=== PATIENT | male | born 1955 | race Caucasian/White ===

== ENCOUNTER → 2017-10-19 16:12 | Outpatient (CLI) | payer BC, SELFPAY ==
--- NOTE | 2017-10-19 | TISS_PTH ---
PATIENT: ALO JOHNSON LOC: [facility] U#:[id number] AGE/SX: 70/M ROOM: RE10/19/[address]: Dr. Fran Noguera DDS : 1955 BED: DIS: SPEC #: [id number] RECD: 10/19/17 17:26 STATUS: MARGARITO GEMA #: [id number] PETER: 10/19/17 00:[address]: Fran Noguera DEPT: SURGICAL PATHOLOGY RECD BY: Chandu Louis ENTERED: 10/20/17 11:24 SP TYPE: Tissue Bx CHAZ DR: Dr. Katelin Young DO Tissues: Skin of lip, NOS Procedures: Special Stain Group I Surgery Specimen Level IV AFB Stain (control) GMS Stain (control) HEADER OPERATION: Lip PRE-OP DIAGNOSIS: Two month history for lesion TISSUE SUBMITTED: Lip biopsy, consider pyogenic granuloma MICROSCOPIC DIAGNOSIS Lip, biopsy: Ulceration with associated acute and chronic inflammation and granulation. No evidence of malignancy. Negative for acid-fast bacilli and fungal organisms. AM:omar 10/21/17 COMMENT AFB and GMS stains with matched controls were used in the evaluation of this case. MICROSCOPIC DESCRIPTION Slides are reviewed. GROSS DESCRIPTION Received in fixative is one container labeled with the patient's name and designated upper lip. The specimen consists of a fragment of [place] mucosal tissue measuring 0.5 x 0.4 x 0.3 cm. The specimen is inked and submitted entirely in one cassette. / SJ:omar 10/20/16 TC:2 CPT: 88124, 99835 x2
== END ==
PROVIDERS: Family Provider Internal Medicine; PCP Internal Medicine; Visit Provider Dentist Oral and Maxillofacial Surgery
DX: L98.8 Other specified disorders of the skin and subcutaneous tissue (principal)
CPT/HCPCS: 88305; 88312

== ENCOUNTER → 2017-12-15 09:37 | Outpatient (CLI) | payer BC, SELFPAY ==
[2017-12-15 10:35] LABS: PSA,Total - Annual Screen 0.89 ng/mL (0.00-4.00)
== END ==
PROVIDERS: Family Provider Internal Medicine; PCP Internal Medicine; Visit Provider Urology
DX: Z12.5 Encounter for screening for malignant neoplasm of prostate (principal)
CPT/HCPCS: 36415; 84153; 84403; G0103

== ENCOUNTER 2018-10-30 14:23 | Observation (INO) | payer BC, SELFPAY ==
[2018-10-30] VITALS (7 sets, daily range): BP systolic 123–158; BP diastolic 81–109; PULSE 73–98; RESP 14–16; TEMP 36.2–37.1; O2SAT 94–97; BMI 32.1; BMI 32.5
--- NOTE | 2018-10-30 14:29 | EKG12_ITS ---
Test Reason : CP Blood Pressure : / mmHG Vent. Rate : 091 BPM Atrial Rate : 091 BPM P-R Int : 150 ms QRS Dur : 102 ms QT Int : 358 ms P-R-T Axes : 031 035 021 degrees QTc Int : 440 ms Normal sinus rhythm Possible Inferior infarct , age undetermined Abnormal ECG Confirmed by SAGAR SHARP, SCOTT ([id number]), editorial cartoonist JOHN CORONADO ([id number]) on 11/01/2018 9:55:53 AM Referred By: CHACE
--- NOTE | 2018-10-30 14:32 | RAD_ITS ---
STUDY: X-RAY CHEST REASON FOR EXAM: Male, 63 years old. Chest pain. TECHNIQUE: Single AP portable view of the chest. COMPARISON: None. FINDINGS: EKG electrodes are seen. The lungs are clear and expanded. Scattered calcified granulomas. There is no demonstrated pleural abnormality. Normal size heart. Normal mediastinum and [place]. Normal visualized pulmonary arteries. There is atherosclerotic tortuosity of the aortic arch and descending thoracic aorta. Normal visualized thoracic spine. Normal visualized ribs, clavicles, and shoulders. There is no demonstrated abnormality of the visualized soft tissue structures of the upper abdomen. RAD/Chest 1 View (Portable) IMPRESSION: No acute abnormality is seen. Electronically Signed: Ghassan Beal MD at 15:06 EST , Service support ,
[2018-10-30 15:01] LABS: Absolute Lymphocyte Count 2.55 X10^3/ul (0.83-4.51); Absolute Neutrophil Count 4.6 X10^3/uL (2.0-7.7); Basophil% 1.2 % (0-1); Eosinophil# 0.13 X10^3/uL; Eosinophils% 1.6 % (0-5); Hematocrit 50.6 % (40-54); Hemoglobin 16.8 g/dl (13.0-16.5); Lymphocyte # 2.55 X10^3/ul (4.0); Lymphocyte % 31.4 % (19-41); Mean Corp Hgb Conc 33.2 g/gl (32-36); Mean Corpuscular Hgb 31.5 pg (27.0-32.0); Mean Corpuscular Volume 94.9 fL (80-94); Mean Platelet Vol. 10.2 fl (6.2-12.0); Monocyte# 0.72 X10^3/uL; Monocyte% 8.9 % (0-10); Neutrophil % 56.5 % (47-70); Platelet Count 202 K/mm3 (150-450); RBC Distribution Width CV 13.1 % (11.6-14.6); RBC Distribution Width SD 45.6 fl (35.1-43.9); Red Blood Count 5.33 M/mm3 (4.6-6.2); White Blood Count 8.1 K/mm3 (4.4-11.0)
[2018-10-30 15:03] LABS: POSITIVE COUNT NO; POSITIVE DIFFERENTIAL NO; POSITIVE MORPHOLOGY NO
[2018-10-30] MEDS: Aspirin 81 MG TAB.CHEW 324 MG PO (15:04)
[2018-10-30] MEDS: 0.9% Normal Saline 1,000 ML 150 ML IV (15:04)
[2018-10-30 15:16] LABS: Anion Gap 6 (5-15); BUN 15 mg/dL (7-18); BUN/Creat Ratio 14.3 RATIO (10-20); Calcium,Total 8.5 mg/dL (8.5-10.1); Chloride 108 mmol/L (98-107); Creatinine, Serum 1.05 mg/dL (0.70-1.30); EST Glomerular Filtration Rate 76 mL/min (>60); Est Glom Filt Rate - Afr Amer 92 mL/min (>60); Estimated Creatinine Clearance 77.69 ml/min; Glucose 90 mg/dL (74-106); Potassium 3.7 mmol/L (3.5-5.1); Sodium Level 140 mmol/L (136-145)
[2018-10-30 15:27] LABS: D-Dimer Quantitative (DVT/PE) 0.29 FEU/ug/m (0.27-0.49)
--- NOTE | 2018-10-30 15:57 | ED.VISSUMM ---
- ER Visit Summary Date of Service: 10/30/18 Chief Complaint: Chest pain History of Present Illness: The patient is a 63 M with a 3-day history of chest tightness across the anterior chest. He states he does note some radiation of pain toward his right shoulder and left neck. He has felt short of breath over the past 3 days as well and states that shortness of breath seems to worsen with exertion. He denies the chest pain worsens with exertion. He does not break out in a sweat. He has not had recent URI symptoms. Patient has history significant only for back pain. He is not sure if he may have had a prior stress test or heart cath. Physical Examination: Blood pressure is 158/101, temperature 97.1, heart rate 98, respiratory rate 14, pulse ox 94% on room air. Patient sitting upright in bed no acute distress. He is alert and talkative. Head neck examination is unremarkable. Heart is regular rate and rhythm. Lungs sounds are clear. I cannot reproduce his chest pain with palpation. Abdomen is soft nontender. Extremity examination reveals no significant calf tenderness or edema. Test Results: Portable chest x-ray shows no acute abnormality. EKG is sinus at [address] change. CBC is significant for normal white count. Hemoglobin is concentrated at 16.8. Chemistry studies normal. Troponin less than 0.015. D-dimer 0.29. Emergency Department Course and Treatment: Patient was given aspirin on arrival. On repeat evaluation he is resting comfortably. I recommended hospitalization for cycling of cardiac enzymes and potential stress test in the morning. Treatment Plan: [] Disposition: Admit Impression: Chest pain This note was generated with [employer] dictation software. It may contain incorrect words, spelling, and punctuation that were not noted in review of the chart prior to signing ED Disposition - Plan for ED Patient: Referrals: Federico Huang MD [Primary Care Provider] -
--- NOTE | 2018-10-30 17:26 | EKG12_ITS ---
Test Reason : Blood Pressure : / mmHG Vent. Rate : 075 BPM Atrial Rate : 075 BPM P-R Int : 166 ms QRS Dur : 106 ms QT Int : 384 ms P-R-T Axes : 048 020 015 degrees QTc Int : 428 ms Normal sinus rhythm Normal ECG Confirmed by SAGAR SHARP, SCOTT ([id number]), teacher of the emotionally disturbed JOHN CORONADO ([id number]) on 11/01/2018 10:11:09 AM Referred By: NIMESH Confirmed By:SCOTT KEITH MD
--- NOTE | 2018-10-30 17:55 | HP.PCM_ITS ---
<Moira Contreras - Last Filed: 10/30/18 18:02> Problem List (1) Degenerative disc disease, lumbar Status: Chronic (2) Lumbar radiculopathy Status: Chronic History of Present Illness Date of Admission: 10/30/18 Chief Complaint: Chest pain. The patient is a 63 year old M who presents emergency room due to chest pain. Patient reports his chest pain initially began Tuesday night. He describes chest pressure with associated shortness of breath. He reports increased shortness of breath with mild exertion. This morning, patient states he woke up with chest pressure and pain radiation to the left side of his neck, right shoulder and also associated nausea and dizziness. He denies any cardiac history. He states he may have had a stress test in the past, greater than 15 years ago. He denies other chronic medical history. He does not take any daily medications. Past Medical History Past Medical History (Chronic Problems): Chronic Problems (Last Reviewed 09/29/17 @ 08:26 by Sandra Fletcher) Degenerative disc disease, lumbar (Chronic) Lumbar radiculopathy (Chronic) Medical History: Medical History (Last Reviewed 09/29/17 @ 08:26 by Sandra Fletcher) Cataracts, bilateral H26.9 History of weight change Z91.89 Seasonal allergies J30.2 Allergies No Known Allergies Allergy (Verified 10/30/18 14:28) Home Medications: Ambulatory Orders Medication Instructions Recorded Multivitamin with Minerals 1 each PO DAILY 10/30/18 [Multiple Vitamin] [place]-3 Fatty Acids/Fish Oil 2 each PO DAILY 10/30/18 [[place] 3 1,000 mg Softgel] Surgical History: Surgical History (Last Reviewed 10/30/18 @ 17:49 by Moira Contreras, LARD RENDERER-C) Right wrist fracture S62.101A 1990 S/P excision of lipoma Z98.890, Z86.018 multiple S/P hernia repair Z98.890, Z87.19 double-1976 S/P rotator cuff repair Z98.890 resection of lipoma left groin, left arm, left anterior chest x2 2010 s/p ankle 2008 Surgical History: - - Left ankle surgery Psychiatric History: No pertinent psych hx Lives: Alone Smoking Status: Never smoker Alcohol: None Drugs: None - *Family History Maternal Family History: Family History (Last Reviewed 09/29/17 @ 08:26 by Sandra Fletcher) Other Cancer Diabetes Heart disease History Items: Diabetes, Dementia, Heart Disease Paternal Family History: Family History (Last Reviewed 09/29/17 @ 08:26 by Sandra Fletcher) Other Cancer Diabetes Heart disease History Items: - - Cancer related to asbestos exposure Review of Systems Constitutional: Denies: Chills, Fever, Weight Change HEENT: Denies: Head Aches, Sinus Congestion, Sinus Drainage Cardiovascular: Reports: Chest Pain, Chest Pressure, Light Headedness. Denies: Edema, Palpitations, Syncope Respiratory: Reports: Shortness of breath upon exertion. Denies: Cough, Shortness of breath at rest, Sputum production Gastrointestinal: Denies: Abdominal Pain, Nausea, Vomiting Genitourinary: Denies: Dysuria Musculoskeletal: Denies: Joint Pain, Joint Tenderness Skin: Denies: Rash, Wounds Neurological: Denies: Numbness, Tingling, Focal weakness Psychiatric: Denies: Anxiety, Depression, Homicidal Ideations, Suicidal Ideations Hematologic/ Lymphatic: Denies: Easy Bruising, Easy Bleeding VTE Information - Inpt Only VTE Present on Admission: No VTE Mechan Device Prophylaxis: None VTE Pharm Prophylaxis ordered?: Yes - Physical Exam General: Alert, Oriented x3, Cooperative, No apparent distress HEENT: Atraumatic, PERRLA, EOMI, Normocephalic Neck: Supple, No JVD, Negative Carotid Bruits Lungs: Clear to auscultation, Normal air movement Cardiovascular: Regular rate, Regular Rhythm, Normal S1, Normal S2, No murmurs Abdomen: Bowel Sounds Present, Soft, Non Tender, Non-Distended, Obese Extremities: No clubbing, No cyanosis, No edema, Capillary Refill Less than 3 Seconds Skin: No rashes, No breakdown Musculoskeletal: No Tenderness to Palpation of Joints or Extremities Neurological: Cranial nerves II-XII grossly intact, Neuro grossly intact Psych/Mental Status: Normal Affect, Appropriate Vital Signs Temp Pulse Resp BP Pulse Ox 98.7 F 73 16 148/95 H 97 10/30/18 17:29 10/30/18 17:29 10/30/18 17:29 10/30/18 17:29 10/30/18 17:29 Oxygen Delivery Method Room Air Weight: 230 lb Body Mass Index (BMI) 32.1 Laboratory Tests Past 24 Hrs 10/30/18 10/30/18 10/30/18 14:45 14:45 14:45 WBC 8.1 RBC 5.33 Hgb 16.8 H Hct 50.6 MCV 94.9 H MCH 31.5 MCHC 33.2 RDW 13.1 RDW Differential 45.6 H Plt Count 202 MPV 10.2 Immature Gran % (Auto) 0.400 Neut % (Auto) 56.5 Lymph % (Auto) 31.4 [place] % (Auto) 8.9 Eos % (Auto) 1.6 Baso % (Auto) 1.2 H Absolute Neuts (auto) 4.6 Absolute Lymphs (auto) 2.55 Total Counted Not Reportable D-Dimer Quant (PE/DVT) 0.29 Sodium 140 Potassium 3.7 Chloride 108 H Carbon Dioxide 26.0 Anion Gap 6 BUN 15 Creatinine 1.05 Estim Creat Clear Calc 77.69 Est GFR (MDRD) Af Amer 92 Est GFR (MDRD) Non-Af 76 BUN/Creatinine Ratio 14.3 Glucose 90 Calcium 8.5 Troponin I < 0.015 Assessment/Plan 1. Chest pain-EKG on admission without ST-T changes. Chest x-ray without acute abnormality. Initial troponin negative. Cycle enzymes. Stress test in a.m. Lipid panel in a.m. 2. Elevated blood pressure without diagnosis of hypertension-continue to monitor. May require oral agents if blood pressure remains above goal. 3. Obesity-encouraged diet lifestyle modifications. DVT prophylaxis- lovenox sc This patient was seen by PAT [place] under the supervision of Dr. Taylor. <Nitin Taylor F - Last Filed: 10/30/18 19:04> History of Present Illness The patient is a 63 year old M [] Past Medical History Medical History: Medical History (Last Reviewed 09/29/17 @ 08:26 by Sandra Fletcher) Cataracts, bilateral H26.9 History of weight change Z91.89 Seasonal allergies J30.2 Allergies No Known Allergies Allergy (Verified 10/30/18 14:28) Surgical History: Surgical History (Last Reviewed 10/30/18 @ 17:49 by PAT [place]) Right wrist fracture S62.101A 1991 S/P excision of lipoma Z98.890, Z86.018 multiple S/P hernia repair Z98.890, Z87.19 double-1976 S/P rotator cuff repair Z98.890 resection of lipoma left groin, left arm, left anterior chest x2 2011 s/p ankle 2008 - *Family History Maternal Family History: Family History (Last Reviewed 09/29/17 @ 08:26 by Sandra Fletcher) Other Cancer Diabetes Heart disease Paternal Family History: Family History (Last Reviewed 09/29/17 @ 08:26 by Sandra Fletcher) Other Cancer Diabetes Heart disease - Physical Exam Vital Signs Temp Pulse Resp BP Pulse Ox 98.7 F 73 16 148/95 H 97 10/30/18 17:29 10/30/18 17:29 10/30/18 17:29 10/30/18 17:29 10/30/18 17:29 Oxygen Delivery Method Room Air Weight: 232 lb 9.403 oz Body Mass Index (BMI) 32.5 Intake and Output for Last 24 Hours 10/28/18 10/29/18 10/30/18 23:59 23:59 23:59 Intake Total 240 / 240 Balance 240 / 240 Laboratory Tests Past 24 Hrs 10/30/18 10/30/18 10/30/18 14:45 14:45 14:45 WBC 8.1 RBC 5.33 Hgb 16.8 H Hct 50.6 MCV 94.9 H MCH 31.5 MCHC 33.2 RDW 13.1 RDW Differential 45.6 H Plt Count 202 MPV 10.2 Immature Gran % (Auto) 0.400 Neut % (Auto) 56.5 Lymph % (Auto) 31.4 [place] % (Auto) 8.9 Eos % (Auto) 1.6 Baso % (Auto) 1.2 H Absolute Neuts (auto) 4.6 Absolute Lymphs (auto) 2.55 Total Counted Not Reportable D-Dimer Quant (PE/DVT) 0.29 Sodium 140 Potassium 3.7 Chloride 108 H Carbon Dioxide 26.0 Anion Gap 6 BUN 15 Creatinine 1.05 Estim Creat Clear Calc 77.69 Est GFR (MDRD) Af Amer 92 Est GFR (MDRD) Non-Af 76 BUN/Creatinine Ratio 14.3 Glucose 90 Calcium 8.5 Troponin I < 0.015 10/30/18 17:46 WBC RBC Hgb Hct MCV MCH MCHC RDW RDW Differential Plt Count MPV Immature Gran % (Auto) Neut % (Auto) Lymph % (Auto) [place] % (Auto) Eos % (Auto) Baso % (Auto) Absolute Neuts (auto) Absolute Lymphs (auto) Total Counted D-Dimer Quant (PE/DVT) Sodium Potassium Chloride Carbon Dioxide Anion Gap BUN Creatinine Estim Creat Clear Calc Est GFR (MDRD) Af Amer Est GFR (MDRD) Non-Af BUN/Creatinine Ratio Glucose Calcium Troponin I < 0.015 Code Visit Addendum: Dr. Taylor I personally examined the patient and reviewed the chart. I agree with the above. 63-year-old male with no significant past medical history presents with episodic chest pain over the last couple of days. He denies any palpatory chest pain. He notices an increased shortness of breath with mild exertion. In the ER he had normal troponins and a normal EKG. We will plan for serial enzymes as well as a stress test in the morning. OBSV E&M: [id number] Initial observation care L3
[2018-10-30] MEDS: 0.9% NaCl Peripheral Flush Adult/Peds IV (21:46)
[2018-10-31 03:01] VITALS: PULSE 65
[2018-10-31 05:19] VITALS: BP 121/83; PULSE 77; RESP 14; TEMP 36.4; O2SAT 95
[2018-10-31 05:43] LABS: Absolute Lymphocyte Count 2.03 X10^3/ul (0.83-4.51); Absolute Neutrophil Count 3.3 X10^3/uL (2.0-7.7); Basophil# 0.07 X10^3/uL; Basophil% 1.1 % (0-1); Eosinophil# 0.12 X10^3/uL; Hematocrit 49.9 % (40-54); Hemoglobin 15.7 g/dl (13.0-16.5); Lymphocyte # 2.03 X10^3/ul (4.0); Lymphocyte % 33.3 % (19-41); Mean Corp Hgb Conc 31.5 g/gl (32-36); Mean Corpuscular Volume 95.2 fL (80-94); Mean Platelet Vol. 9.9 fl (6.2-12.0); Monocyte% 9.8 % (0-10); Neutrophil # 3.25 X10^3/uL (2.7-7.7); Neutrophil % 53.3 % (47-70); Platelet Count 178 K/mm3 (150-450); RBC Distribution Width CV 13.2 % (11.6-14.6); Red Blood Count 5.24 M/mm3 (4.6-6.2); White Blood Count 6.1 K/mm3 (4.4-11.0)
[2018-10-31 05:48] LABS: POSITIVE COUNT NO; POSITIVE DIFFERENTIAL NO; POSITIVE MORPHOLOGY NO
--- NOTE | 2018-10-31 05:55 | EKG12_ITS ---
Test Reason : AM EKG Blood Pressure : / mmHG Vent. Rate : 071 BPM Atrial Rate : 071 BPM P-R Int : 168 ms QRS Dur : 104 ms QT Int : 388 ms P-R-T Axes : 043 040 024 degrees QTc Int : 421 ms Normal sinus rhythm Normal ECG Confirmed by SAGAR SHARP, SCOTT ([id number]), state editor JOHN CORONADO ([id number]) on 11/01/2018 10:10:02 AM Referred By: NIMESH Confirmed By:SCOTT KEITH MD
[2018-10-31 05:56] LABS: Anion Gap 9 (5-15); BUN 13 mg/dL (7-18); BUN/Creat Ratio 14.5 RATIO (10-20); Calcium,Total 8.2 mg/dL (8.5-10.1); Chloride 111 mmol/L (98-107); Cholesterol 217 mg/dL (200); EST Glomerular Filtration Rate 91 mL/min (>60); Est Glom Filt Rate - Afr Amer 110 mL/min (>60); Estimated Creatinine Clearance 87.87 ml/min; Glucose 92 mg/dL (74-106); High Density Lipoprotein 44 mg/dL; Potassium 4.2 mmol/L (3.5-5.1); Sodium Level 145 mmol/L (136-145); Triglycerides 170 mg/dL; Very Low Density Lipoprotein 34 mg/dL (5-40)
--- NOTE | 2018-10-31 08:49 | STRESSREP ---
Stress Test Report Date: 10/31/2018 Procedure: Exercise tolerance test/imaging study Indications: Chest pain; shortness of breath/dyspnea Consent: Per the patient Procedure: The patient exercised on a Constantin protocol for 9 minutes and 30 seconds completing Stage III and 30 seconds of Stage IV achieving a peak heart rate of 162 bpm (102 % predicted maximal heart rate) with a peak blood pressure 190/72 mmHg and a peak MET capacity of 10 METs. The baseline ECG demonstrated Normal sinus rhythm . The peak exercise ECG demonstrated No obvious ECG changes . There were rare PVCs pretest, during exercise, and recovery . The functional capacity was considered Good . There was no complaint of chest discomfort during exercise or recovery. The examination was discontinued secondary to Dyspnea . Impression: 1. Technically adequate (percent predicted maximal heart rate greater than 85%) exercise tolerance test 2. Peak exercise ECG With no obvious ECG changes 3. There were rare PVCs pretest, during exercise, and recovery 4. Nuclear images pending Myocardial perfusion imaging study: Technique: The patient was injected with 14.6 mCi of technetium 99m Cardiolite and subsequently rest SPECT Cardiolite nuclear imaging was obtained in the horizontal long, vertical long, and short axis views. The patient exercised on a Constantin protocol for 9 minutes and 30 seconds completing Stage III and 30 seconds of Stage IV achieving a peak heart rate of 162 bpm (102 % predicted maximal heart rate) with a peak blood pressure 190/72 mmHg and a peak MET capacity of 10 METs. The patient was injected with 44.8 mCi of technetium 99m Cardiolite and subsequently stress SPECT Cardiolite nuclear imaging was obtained in the horizontal long, vertical long, and short axis views. A gated Cardiolite study at peak stress was obtained. Interpretation: Rest and stress SPECT Cardiolite nuclear imaging status post realignment, normalization, and attenuation correction, demonstrates the appearance of relative uniform tracer uptake and myocardial perfusion appearing within normal limits. There is end systolic thickening and brightening. The gated Cardiolite study demonstrates myocardial thickening and inward wall motion. The reported LVEF is 72 %. Impression: 1. Rest and stress SPECT Cardiolite nuclear imaging demonstrate relative uniform tracer uptake and myocardial perfusion appearing within normal limits. 2. The gated Cardiolite study reports an LVEF of 72 %. This note was generated with [employer] software. It may contain incorrect words, spelling, and punctuation that were not noted in checking the note before signing.
[2018-10-31 09:26] VITALS: BP 139/86; PULSE 96; RESP 18; TEMP 36.8; O2SAT 94
[2018-10-31 09:28] VITALS: PULSE 116
--- NOTE | 2018-10-31 09:56 | DCINST_ITS ---
You will use the following diet at home:: Other - Low fat/low cholesterol Discharge Activity: Return to Normal Activity Call your doctor if you observe: Shortness of breath, Dizziness, Fainting spells, Chest pain Allergies/Adverse Reactions: Allergies No Known Allergies Allergy (Verified 10/30/18 14:28) Medications to take at Discharge Multivitamin with Minerals [Multiple Vitamin] 1 each PO DAILY 10/30/18 [place]-3 Fatty Acids/Fish Oil [[place] 3 1,000 mg Softgel] 2 each PO DAILY 10/30/18 Primary Care Physician: Federico Huang MD [Primary Care Provider] - Please follow up with your Primary Care Physician in: 1 Week Test Results: Test results from this visit will be discussed in further detail at your follow- up appointment, if applicable. Proposed Discharge Date: 10/31/18
--- NOTE | 2018-10-31 09:57 | CT_ITS ---
STUDY: CT CHEST WITHOUT CONTRAST REASON FOR EXAM: Male, 63 years old. Chest pain and chest tightness. RADIATION DOSAGE (If Supplied By Facility): CTDIvol = ( 19.98 ) mGy, DLP = ( 708.93 ) mGycm TECHNIQUE: Transaxial imaging was performed without the administration of intravenous contrast material. Multiplanar coronal and sagittal images were reformatted. Individualized dose optimization techniques were used for this CT. COMPARISON: Comparison is made with prior chest radiograph dated October 30, 2018. FINDINGS: The lungs are normal. There is no demonstrated pleural abnormality. There are calcifications of the coronary arteries. There are multiple small lymph nodes within the mediastinum, which are normal in size and morphology most compatible with reactive lymph hyperplasia. Normal hilar regions. Normal unenhanced pulmonary arteries. Normal aorta arch and descending thoracic aorta. There are multi-level degenerative changes of the thoracic spine. Small hiatal hernia. CT/Chest without Contrast IMPRESSION: Coronary artery calcification. Electronically Signed: Ghassan Beal MD at 10:51 EST , Service support ,
--- NOTE | 2018-10-31 10:02 | DS.PCM_ITS ---
Discharge Date and Diagnosis Date of Admission: 10/30/18 Date of Discharge: 10/31/18 - Primary Discharge Diagnosis 1. Noncardiac chest pain 2. Obesity - Secondary Discharge Diagnosis Chronic Problems (Last Reviewed 09/29/17 @ 08:26 by Sandra Fletcher) Degenerative disc disease, lumbar (Chronic) Lumbar radiculopathy (Chronic) Hospital Course and Treatment Imaging Results: Diagnostic Data Chest X-Ray 10/30/18 14:32 IMPRESSION: No acute abnormality is seen. Electronically Signed: Ghassan Beal MD at 15:06 EST , Service support , Operations: None Procedures: Stress test Summary of Care Provided: The patient is a 63 year old M admitted 10/31/2018 due to chest pain. 1. Noncardiac chest pain-EKG on admission without ST-T changes. Chest x-ray without acute abnormality. Troponin negative. Patient underwent nuclear stress test which was negative for ischemia. Gated LVEF 72%. Patient had CT of chest which showed coronary artery calcification. Patient discharged on aspirin 81 mg p.o. daily. If patient continues to have symptoms, recommend outpatient cardiac catheterization. Follow-up with primary care physician in 1 week. 2. Mildly elevated lipid panel-cholesterol 217, LDL 139. Recommend low-fat/low -cholesterol diet with repeat lipid panel as outpatient by primary care physician.` 3. Obesity-encouraged diet lifestyle modifications. General: Alert, Oriented x3, Cooperative, No apparent distress HEENT: Atraumatic, PERRLA, EOMI, Normocephalic Neck: Supple, No JVD, Negative Carotid Bruits Lungs: Clear to auscultation, Normal air movement Cardiovascular: Regular rate, Regular Rhythm, Normal S1, Normal S2, No murmurs Abdomen: Bowel Sounds Present, Soft, Non Tender, Non-Distended, Obese Extremities: No clubbing, No cyanosis, No edema, Capillary Refill Less than 3 Seconds Skin: No rashes, No breakdown Musculoskeletal: No Tenderness to Palpation of Joints or Extremities Neurological: Cranial nerves II-XII grossly intact, Neuro grossly intact Psych/Mental Status: Normal Affect, Appropriate Patient seen and examined prior to discharge. Physical assessment as noted above. Patient is stable for discharge with follow up recommendations as noted above. This patient was seen by PAT [place] under the supervision of Dr. Zazueta. - Physical Exam Vital Signs Temp Pulse Resp BP Pulse Ox 98.3 F 96 18 139/86 H 94 10/31/18 09:26 10/31/18 09:26 10/31/18 09:26 10/31/18 09:26 10/31/18 09:26 Oxygen Delivery Method Room Air Weight: 232 lb 9.403 oz Body Mass Index (BMI) 32.5 Intake and Output for Last 24 Hours 10/29/18 10/30/18 10/31/18 23:59 23:59 23:59 Intake Total 240 / 240 120 / 120 Balance 240 / 240 120 / 120 Laboratory Tests Past 24 Hrs 10/30/18 10/30/18 10/30/18 14:45 14:45 14:45 WBC 8.1 RBC 5.33 Hgb 16.8 H Hct 50.6 MCV 94.9 H MCH 31.5 MCHC 33.2 RDW 13.1 RDW Differential 45.6 H Plt Count 202 MPV 10.2 Immature Gran % (Auto) 0.400 Neut % (Auto) 56.5 Lymph % (Auto) 31.4 [place] % (Auto) 8.9 Eos % (Auto) 1.6 Baso % (Auto) 1.2 H Absolute Neuts (auto) 4.6 Absolute Lymphs (auto) 2.55 Total Counted Not Reportable PT INR APTT D-Dimer Quant (PE/DVT) 0.29 Sodium 140 Potassium 3.7 Chloride 108 H Carbon Dioxide 26.0 Anion Gap 6 BUN 15 Creatinine 1.05 Estim Creat Clear Calc 77.69 Est GFR (MDRD) Af Amer 92 Est GFR (MDRD) Non-Af 76 BUN/Creatinine Ratio 14.3 Glucose 90 Calcium 8.5 Troponin I < 0.015 Triglycerides Cholesterol LDL Cholesterol VLDL Cholesterol HDL Cholesterol 10/30/18 10/30/18 10/31/18 17:46 20:32 05:20 WBC 6.1 RBC 5.24 Hgb 15.7 Hct 49.9 MCV 95.2 H MCH 30.0 MCHC 31.5 L RDW 13.2 RDW Differential 46.0 H Plt Count 178 MPV 9.9 Immature Gran % (Auto) 0.500 Neut % (Auto) 53.3 Lymph % (Auto) 33.3 [place] % (Auto) 9.8 Eos % (Auto) 2.0 Baso % (Auto) 1.1 H Absolute Neuts (auto) 3.3 Absolute Lymphs (auto) 2.03 Total Counted Not Reportable PT INR APTT D-Dimer Quant (PE/DVT) Sodium Potassium Chloride Carbon Dioxide Anion Gap BUN Creatinine Estim Creat Clear Calc Est GFR (MDRD) Af Amer Est GFR (MDRD) Non-Af BUN/Creatinine Ratio Glucose Calcium Troponin I < 0.015 < 0.015 Triglycerides Cholesterol LDL Cholesterol VLDL Cholesterol HDL Cholesterol 10/31/18 10/31/18 05:20 05:20 WBC RBC Hgb Hct MCV MCH MCHC RDW RDW Differential Plt Count MPV Immature Gran % (Auto) Neut % (Auto) Lymph % (Auto) [place] % (Auto) Eos % (Auto) Baso % (Auto) Absolute Neuts (auto) Absolute Lymphs (auto) Total Counted PT 13.0 INR 1.0 APTT 30.0 D-Dimer Quant (PE/DVT) Sodium 145 Potassium 4.2 Chloride 111 H Carbon Dioxide 25.0 Anion Gap 9 BUN 13 Creatinine 0.90 Estim Creat Clear Calc 87.87 Est GFR (MDRD) Af Amer 110 Est GFR (MDRD) Non-Af 91 BUN/Creatinine Ratio 14.5 Glucose 92 Calcium 8.2 L Troponin I Triglycerides 170 Cholesterol 217 H LDL Cholesterol 139 H VLDL Cholesterol 34 HDL Cholesterol 44 Discharge Diet: Low fat/ Low Cholesterol Discharge Activity: Return to Normal Activity Call your doctor if you observe: Shortness of breath, Dizziness, Fainting spells, Chest pain Home Medications: Medications to take at Discharge Multivitamin with Minerals [Multiple Vitamin] 1 each PO DAILY 10/30/18 [place]-3 Fatty Acids/Fish Oil [[place] 3 1,000 mg Softgel] 2 each PO DAILY 10/30/18 Primary Care Physician: Federico Huang MD [Primary Care Provider] - Please follow up with your Primary Care Physician in: 1 Week Disposition: Home Minutes spent on discharge:: 35 Patient Condition:: Stable Medical Necessity - Tobacco Use Smoking Status: Never smoker Meaningful Use Info Meaningful Use Diagnoses (Choose all that apply): None applicable
--- NOTE | 2018-10-31 10:04 | PHA.DC.MR ---
Pharmacy Service has performed discharge medication reconciliation for this patient. No new medications on discharge, home medications reviewed. The patient's discharge medication list was reviewed for discrepancies and discrepancies were resolved. Home Medications Multivitamin with Minerals [Multiple Vitamin] 1 each PO DAILY 10/30/18 Rinard-3 Fatty Acids/Fish Oil [Rinard 3 1,000 mg Softgel] 2 each PO DAILY 10/30/18
== END 2018-10-31 09:56 | disposition home or self-care (01) ==
LOC: ED 15:02 → PCU 17:10
PROVIDERS: Admitting Provider Family Medicine; Emergency Provider Emergency Medicine; Family Provider Family Medicine; PCP Family Medicine; Visit Provider Internal Medicine
DX: R07.89 Other chest pain (principal); R06.02 Shortness of breath; R42 Dizziness and giddiness; R11.0 Nausea; M51.16 Intervertebral disc disorders with radiculopathy, lumbar region; E66.9 Obesity, unspecified; Z68.32 Body mass index [BMI] 32.0-32.9, adult; Z71.3 Dietary counseling and surveillance; R03.0 Elevated blood-pressure reading, without diagnosis of hypertension; Z23 Encounter for immunization
CPT/HCPCS: 36415; 71045; 71250; 78452; 80048; 80061; 84484; 85025; 85379; 85610; 85730; 93005; 93017; 96360; 96361; 99218; 99283; A9500; J7030; 90686; A4216; G0378

== ENCOUNTER 2020-03-30 10:29 | Emergency (ER) | payer BC, SELFPAY ==
[2018-10-30 17:44] VITALS: BMI 32.5
[2020-03-30 10:31] VITALS: BP 126/85; PULSE 87; RESP 16; TEMP 36.8; BMI 32.1
--- NOTE | 2020-03-30 10:43 | RAD_ITS ---
STUDY: X-RAY - LUMBAR SPINE REASON FOR EXAM: Male, 64 years old. Trauma. Recent back fusion surgery. TECHNIQUE: 2 view(s) of the lumbar spine were obtained. COMPARISON: 08/11/2017 FINDINGS: There is no evidence of fracture or dislocation in the lumbar spine. The patient is status post fusion of L5/S1 with intact hardware in satisfactory alignment. There are stable degenerative changes. RAD/Lumbar Spine 2 or 3 Views IMPRESSION: Status post fusion of L5/S1 with intact hardware and satisfactory alignment. No fracture or dislocation in the lumbar spine. Stable degenerative change. Electronically Signed: Presley Gomez, at 11:26 EDT Tel , Service support ,
--- NOTE | 2020-03-30 11:04 | ED.VISSUMM ---
- ER Visit Summary Date of Service: 03/30/20 Chief Complaint: [Fall] History of Present Illness: The patient is a 64 M [presents to the emergency department after sustaining a fall while walking into [facility] this morning. Patient states that he tripped in his ankle, gave out so he fell forward onto his hands and knees. He did not strike his head. No loss of consciousness. He had a hard time getting up secondary the pain in his back. Patient states that he had surgery 6 weeks ago where he had a lumbar fusion of L5-S1 performed by Dr. Justin Esteves. Patient complaining now of pain radiating down his right leg and numbness and tingling in his toes. Patient states that prior to the fall he was feeling really good from the surgery. He denies any other injuries other than some mild soreness in his knees where he landed on them. Patient otherwise has no medical history.] Physical Examination: [HEENT-PERRLA, EOMI. Cranial nerves II through XII grossly intact. TMs clear. Mucous membranes moist. No adenopathy. No C-spine tenderness on palpation. No external evidence of trauma to his head. Cardiovascular-regular rate and rhythm without murmur or ectopy Lungs-clear to auscultation, chest wall stable without crepitus or subcu emphysema Abdomen-normoactive bowel sounds, soft, nontender, no rebound or rigidity, no peritoneal signs. Back exam-patient presented on a backboard. He is got diffuse tenderness over the lower lumbar spine. Patient has a positive straight leg raise on the right with pain about 25 degrees. He is got normal sensation to light touch bilaterally. Deep tendon reflexes are plus 1 out of 4 bilaterally at the patella and Achilles. Patient has normal 5 extension bilaterally. Extremities-intact ?4, normal range of motion, normal pulses, atraumatic] Test Results: [X-rays of the lumbar spine showed L5-S1 fusion with no fractures and no malalignment of the hardware.] Emergency Department Course and Treatment: [Patient refused any narcotic pain medications and just wanted Tylenol therefore he was given a gram of Tylenol p.o.] Patient was able to get up to the restroom and ambulate without too much difficulty. He understands that he may need further imaging such as MRI if his symptoms should worsen such as change in bowel or bladder function or weakness the extremity or saddle anesthesia. Treatment Plan: [Patient advised to follow-up with his surgeon within next 3 to 5 days. Patient will be given a prescription for few [place] for pain should he need them.] Disposition: [Discharged home in stable condition] Impression: [Chemical fall Lumbar strain] This note was generated with [employer] dictation software. It may contain incorrect words, spelling, and punctuation that were not noted in review of the chart prior to signing ED Disposition - Plan for ED Patient: Referrals: Dana Lieberman MD [Primary Care Provider] -
[2020-03-30] MEDS: Acetaminophen 500 MG Tablet 1000 MG PO (11:24)
--- NOTE | 2020-03-30 11:38 | ED.DEP ---
ED Disposition - Plan for ED Patient: Instructions: ED Mechanical Fall, ED LUMBAR SPRAIN/STRAIN Prescriptions: Hydrocodone Bitart/Apap 5-325 [[place] 5MG-325MG] 1 tab PO Q4H PRN PRN 2 Days #10 tab PRN Reason: Pain Prescription Printed Referrals: Dana Lieberman MD [Primary Care Provider] - 3-5 Days Additional Instructions: see your surgeon in 3-5 days
== END 2020-03-30 11:45 | disposition home or self-care (01) ==
LOC: ED 11:20
PROVIDERS: Emergency Provider Emergency Medicine; PCP Internal Medicine
DX: S39.012A Strain of muscle, fascia and tendon of lower back, initial encounter (principal); W01.0XXA Fall on same level from slipping, tripping and stumbling without subsequent striking against object, initial encounter
CPT/HCPCS: 72100; 99284

== ENCOUNTER 2022-05-18 08:30 | Outpatient (RCR) | payer MEDICARE, OTHER, SELFPAY ==
--- NOTE | 2022-05-04 10:24 | HP.PTEVAL_ITS ---
Patient's Visit Information ALO JOHNSON is a 66 year old M referred to Physical Therapy by PAT AHUMADA with a diagnosis of arthroscopic partial meniscectomy of L knee, DOS 04/16/22. Date of Evaluation: 04/28/22 Physical Therapist: Cruz Judge DPT - Visit Plan Frequency: 2x /Week Duration: 4 Weeks Plan: Start with vaso and ice to reduce effusion, add in quad and HS activation. Increased ROM to full. Add in light biking and progress tolernace to functional mobility as able. - Subjective Pt. is here today for his initial evaluation with diagnosis of arthroscopic partial meniscectomy of L knee, DOS 04/16/22. Pt. arrives today with out AD, but reports he has been using a cane at home. He is ambulating with marked antalgic pattern. He reports initially falling and twisting his knee which caused him to go and get checked. Found to have a tear then subsequent surgery. He reports overall doing better, but is still dealing with increased pain with walking and standing. He reports increased swelling that goes down at night and increases as the day progresses. Pt. has been taking NSAIDs as prescribed with good relief. He has not doing any exercises at this point in time. Vocation: remodeling homes, contractor. He is to follow up with physician in a few weeks. He is WBAT. He is hopeful to reduce symptoms in order to get back to all recreational and work activities without limitations. - Pain L knee Pain Intensity (Out of 10): 3 Pain Intensity Range: 2, 8 Comment: increases during WBing - Objective POSTURE: Pt. has slight flexed posture with increased wt. shift to R side. Pt. tends to decrease WBing on L side in stance. PALPATION: pt. has healing port hole incisions, no signs of infection, but has marked joint effusion in his L knee. Pt. has minimal heat and no redness. NEURO: Normal to light and sharp touch. Normal DTR of BLEs. ROM: R knee 0-0-124deg. L knee PROM 0-0-125deg, AROM 0-2-125deg. Pt. reports increased pain at ~10deg of extension that reduces past this point. MMT: RLE 5/5 throughout. LLE: ankle 5/5 throughout; knee: ext 3/5, flexion 4/5; hip: flexion 4/5, abd 4/5,ext 4/5. GAIT: Pt. arrived today ambulating with out cane and had a marked antalgic pattern. I gave him a cane which drastically improved his tolerance with gait. He lacks TKE during stance phase, but has good flexion during swing phase. He did better with increased ambulation. DNT stairs this date. - Balance/Special Test Scores Lower Extremity Functional Score: 20 - Goals Goal 1:: LTG: Pt. to be I with HEP. Goal Time Frame: 4-6 Weeks Goal 2:: STG: Pt. to have L knee ROM pain free from 0-0-120deg. Goal Time Frame: 2 Weeks Goal 3:: STG: Pt. to have symmetrical L knee girth indicated reduced joint effusion. Goal Time Frame: 2 Weeks Goal 4:: LTG: Pt. to have 5/5 strength throughout LLE allowing for increased ability to complete all functional mobility. Goal Time Frame: 4-6 Weeks Goal 5:: LTG: Pt. to ambulate with normal gait pattern with out AD without increase in symptoms allowing for increased tolerance to community ambulation. Goal Time Frame: 4-6 Weeks Goal 6:: LTG: Pt. to negotiate 1 flight of stairs with 1 HR with reciprocal pattern without increase in symptoms. Goal Time Frame: 4-6 Weeks - Rehabilitation Potential Physical Therapy Diagnosis: Pt. has signs and symptoms consistent with arthroscopic partial meniscectomy of L knee, DOS 04/16/22. Pt. has marked edema, weakness and difficulty with gait. He would benefit from PT to work on the above limitations progressing back to all functional movements as tolerated. Rehabilitation Potential: Excellent - Anticipated Interventions Patient/Client Instruction: Educate patient on: Condition, Plan of Care, Risk Factors, Benefits of Fitness Program For the Purpose of:: To foster healthy habits, To improve decision making, To facilitate caregiver knowledge, To improve self management, To prevent re- injury, To improve ability to perform tasks related to life management Therapeutic Exercise to Include: Strength training, Power training, Balance training, Body mechanics, Postural training, Flexibilty training, Gait and locomotor training, Passive ROM, Active ROM For the Purpose of:: To decrease pain, To decrease swelling/inflammation, To increase ROM, To improve nutrient delivery to tissue, To increase oxygenation perfusion, To improve ability of physical actions for home/community/work/le isure, To improve gait and locomotor functions, To improve health of tissue, To decrease soft tissue restriction, To increase flexibility/ROM Cryotherapy (ice pack, ice massage): Yes Vasopneumatic device: Yes For the Purpose of:: To decrease pain, To decrease swelling/inflammation, To increase ROM, To improve nutrient delivery to tissue, To increase oxygenation perfusion, To increase flexibility/ROM Thank you for the opportunity to evaluate your patient. For Medicare and Medicare HMO plans, please review the plan of care and approve it. It will need to be FAXED BACK to us at [phone] for Medicare purposes. For Medicare only, by signing this I certify the plan of care. Please let me know if there are questions or concerns regarding this plan of care. Physician Signature: Date:
== END 2022-05-18 19:00 | disposition home or self-care (01) ==
LOC: PT 08:30
PROVIDERS: PCP Internal Medicine; Referring Provider Nurse Practitioner Family; Visit Provider Nurse Practitioner Family
DX: S83.242D Other tear of medial meniscus, current injury, left knee, subsequent encounter (principal); X58.XXXD Exposure to other specified factors, subsequent encounter
CPT/HCPCS: 97016; 97035; 97110; 97161

== ENCOUNTER → 2022-10-05 | Outpatient (CLI) | payer MEDICARE, OTHER, SELFPAY ==
[2022-10-05 10:14] LABS: Absolute Lymphocyte Count 1.98 X10^3/uL (0.83-4.51); Absolute Neutrophil Count 4.2 X10^3/uL (2.0-7.7); Basophil# 0.08 X10^3/uL; Basophil% 1.2 % (0-1); Eosinophil# 0.13 X10^3/uL; Eosinophils% 1.9 % (0-5); Hematocrit 49.7 % (40-54); Hemoglobin 16.2 g/dL (13.0-16.5); Lymphocyte # 1.98 X10^3/ul (0.83-4.51); Mean Corp Hgb Conc 32.6 g/dL (32-36); Mean Corpuscular Hgb 30.8 pg (27.0-32.0); Mean Corpuscular Volume 94.5 fL (80-94); Mean Platelet Vol. 9.6 fl (6.2-12.0); Monocyte# 0.42 X10^3/uL; Monocyte% 6.2 % (0-10); NRBC Flagged by Analyzer 0 % (0-5); Neutrophil # 4.17 X10^3/uL (2.7-7.7); Neutrophil % 61.1 % (47-70); Platelet Count 222 K/mm3 (150-450); RBC Distribution Width CV 12.3 % (11.6-14.6); RBC Distribution Width SD 42.5 fl (35.1-43.9); Red Blood Count 5.26 M/mm3 (4.6-6.2); White Blood Count 6.8 K/mm3 (4.4-11.0)
[2022-10-05 10:30] LABS: Hemoglobin A1c 5.3 % (3.8-5.6)
[2022-10-05 10:51] LABS: Albumin, Serum 3.6 g/dL (3.2-5.0); Anion Gap 4 (5-15); BUN 12 mg/dL (7-18); BUN/Creat Ratio 11.8 RATIO (10-20); Calcium,Total 8.6 mg/dL (8.5-10.1); Chloride 108 mmol/L (98-107); Creatinine, Serum 1.02 mg/dL (0.70-1.30); EST Glomerular Filtration Rate 78 mL/min (>60); Est Glom Filt Rate - Afr Amer 94 mL/min (>60); Glucose 121 mg/dL (74-106); Potassium 4.3 mmol/L (3.5-5.1); Sodium Level 140 mmol/L (136-145)
== END | disposition home or self-care (01) ==
PROVIDERS: PCP Internal Medicine; Referring Provider Physician Assistant Surgical; Visit Provider Physician Assistant Surgical
DX: Z01.818 Encounter for other preprocedural examination (principal); Z79.899 Other long term (current) drug therapy
CPT/HCPCS: 36415; 80048; 82040; 83036; 85025